=== PATIENT | female | born 1980 | race Caucasian/White ===

== ENCOUNTER 2022-07-26 08:22 | Emergency (ER) | payer MEDICAID ==
[~2022-07-26] VITALS: Ht 160 cm; Wt 9.1 kg
[2022-07-26 08:22] VITALS: BP 116/55
--- NOTE | 2022-07-26 08:22 | NUR ---
BIBA to bed 04
[2022-07-26] MEDS ORDERED: FAMO-92 PO (09:45)
[2022-07-26 10:06] VITALS: BP 135/75
== END 2022-07-26 09:20 | disposition home or self-care (01) ==
LOC: MED 08:22
DX: R07.9 Chest pain, unspecified (principal); F45.8 Other somatoform disorders; K21.9 Gastro-esophageal reflux disease without esophagitis; M25.512 Pain in left shoulder; Z90.49 Acquired absence of other specified parts of digestive tract; Z79.899 Other long term (current) drug therapy; Z98.890 Other specified postprocedural states
CPT/HCPCS: 71045; 81002; 81025; 93005; 99283